=== PATIENT | female | born 1995 | race Caucasian/White ===

== ENCOUNTER 2018-04-14 11:20 | Observation (INO) | payer MEDICAID ==
[~2018-04-14] VITALS: Ht 160 cm; Wt 91.2 kg
[2018-04-14] MEDS ORDERED: PNV1TABL50 PO (11:38)
[2018-04-14] MEDS ORDERED: RISP1TAB26 PO (11:38)
[2018-04-14] MEDS ORDERED: ACETAMINOPHEN 325MG TABLET PO NR (12:15)
== END 2018-04-14 12:41 | disposition home or self-care (01) ==
LOC: 8 EST LDRP 11:20
PROVIDERS: ADMIT Specialist; ATTEND Specialist
DX: O26.892 Other specified pregnancy related conditions, second trimester (principal); R10.2 Pelvic and perineal pain; R51 Headache; Z3A.26 26 weeks gestation of pregnancy
CPT/HCPCS: 99281; G0378

== ENCOUNTER 2018-04-14 12:46 | Emergency (ER) | payer MEDICAID ==
[~2018-04-14] VITALS: Ht 160 cm; Wt 91.0 kg
[~2018-04-14 12:46] MED LIST: PNV1TABL50 PO; RISP1TAB26 PO
[2018-04-14] MEDS ORDERED: KETOROLAC 15MG/ML VIAL IM ONE (16:00)
[2018-04-14] MEDS ORDERED: ONDANSETRON 4MG ODT PO ONE (16:00)
[2018-04-14 18:04] LABS: BASOPHILS % 0.2 % (0.0-2.0); EOSINOPHILS % 0.5 % (0.0-5.0); HEMATOCRIT. 36.8 % (36.0-48.0); HEMOGLOBIN. 12.5 g/dL (12.0-16.0); LYMPHOCYTES % 19.5 % (20.0-50.0); MEAN CORPUSCULAR HEMOGLOBIN 32.6 pg (28.0-32.0); MEAN CORPUSCULAR VOLUME 96.1 fL (81.0-99.0); MEAN PLATELET VOLUME 9.3 fl (7.4-10.4); MONOCYTES % 8.6 % (2.0-8.0); NEUTROPHILS % 71.2 % (40.0-76.0); PLATELET 242 x1000/uL (130-400); RED BLOOD CELL COUNT 3.83 mill/uL (4.2-5.4); RED CELL DISTRIBUTION WIDTH 12.8 % (11.6-14.6)
[2018-04-14 18:10] LABS: CHLORIDE 107 mEq/L (98-107)
[2018-04-14 18:22] LABS: CLARITY URINE CLEAR (CLEAR); COLOR URINE YELLOW (YELLOW); KETONES URINE NEGATIVE (NEGATIVE); LEUKOCYTE ESTERASE URINE NEGATIVE (NEGATIVE); NITRITE URINE NEGATIVE (NEGATIVE); OCCULT BLOOD URINE NEGATIVE (NEGATIVE); PH URINE 6.5 (4.5-8.0); PROTEIN URINE NEGATIVE (NEGATIVE); SPECIFIC GRAVITY URINE 1.003 (1.005-1.030); UROBILINOGEN URINE 0.2 E.U./dL (0.2-1.0)
[2018-04-14 18:35] LABS: B-HCG QUANTITATIVE 2197 mIU/mL (<3)
[2018-04-14] MEDS ORDERED: FLUCONAZOLE 150MG TABLET PO ONE (19:00)
[2018-04-14 19:53] VITALS: BP 151/80
== END 2018-04-14 19:55 | disposition home or self-care (01) ==
LOC: ER 13:09
DX: O26.892 Other specified pregnancy related conditions, second trimester (principal); O20.9 Hemorrhage in early pregnancy, unspecified; Z3A.27 27 weeks gestation of pregnancy
CPT/HCPCS: 36415; 76805; 84702; 99284

== ENCOUNTER 2019-11-20 04:41 | Emergency (ER) | payer MEDICAID ==
[~2019-11-20] VITALS: Ht 162.6 cm; Wt 73.0 kg
[2019-11-20] MEDS ORDERED: PEN G BENZ/PEN G PROCAINE CR 1.2 MMU/2 ML IM ONE (06:45)
[2019-11-20] MEDS ORDERED: IBUPROFEN 400MG TABLET PO ONE (06:45)
[2019-11-20 06:52] VITALS: BP 145/90
== END 2019-11-20 07:04 | disposition home or self-care (01) ==
LOC: ER 04:41
DX: J02.9 Acute pharyngitis, unspecified (principal)
CPT/HCPCS: 87070; 87430; 87491; 87591; 96372; 99283; J0558

== ENCOUNTER 2020-06-16 15:33 | Emergency (ER) | payer MEDICAID ==
[~2020-06-16] VITALS: Ht 160 cm; Wt 95.0 kg
[~2020-06-16 15:33] MED LIST changes: -RISP1TAB26 PO; +RISP1TAB97 PO
[2020-06-16] MEDS ORDERED: TOPUD PO (18:19)
[2020-06-16] MEDS ORDERED: AMOX-424 MT (18:19)
[2020-06-16 18:56] VITALS: BP 152/96
== END 2020-06-16 18:57 | disposition home or self-care (01) ==
LOC: ER 15:33
DX: J02.9 Acute pharyngitis, unspecified (principal); I10 Essential (primary) hypertension
CPT/HCPCS: 87070; 87430; 99281